=== PATIENT | male | born 1975 | race Caucasian/White ===

== ENCOUNTER 2018-02-27 18:36 | Emergency (ER) | payer SELFPAY ==
[~2018-02-27] VITALS: Ht 172.7 cm; Wt 72.6 kg
[2018-02-27 18:41] VITALS: BP_SYST 143
[2018-02-27] MEDS ORDERED: PROPOFOL DRIP 100 ML IV ONE (19:00)
[2018-02-27] MEDS ORDERED: ONDANSETRON HCL 4 MG/2 ML VIAL IVP ONE (19:45)
[2018-02-27 20:21] VITALS: BP_SYST 146
== END 2018-02-27 20:21 | disposition home or self-care (01) ==
LOC: SED 18:36
DX: S43.005A Unspecified dislocation of left shoulder joint, initial encounter (principal); X58.XXXA Exposure to other specified factors, initial encounter; Y93.89 Activity, other specified; Y92.89 Other specified places as the place of occurrence of the external cause; Y99.8 Other external cause status
CPT/HCPCS: 23650; 73030; 96374; 99152; 99284; J2405; J2704